=== PATIENT | female | born 1970 | race Two or more races ===

== ENCOUNTER 2017-03-23 21:11 | Emergency (ER) | payer MEDICAID ==
[~2017-03-23] VITALS: Ht 160 cm; Wt 76.6 kg
[~2017-03-23 21:11] MED LIST: ACYCLOVIR400 MG PO; CETIRIZINE HCL10 M1 PO; COLACE100 M1 PO; COLACE100 MG PO; IBUPROFEN800 M1 PO; IBUPROFEN800 MG PO; MACROBID 100 M100 M1 PO; MOTRIN800 MG PO; MULTIVITAMIN1 TAB PO; NO HOME MEDS; PERCOCET 5-3251 EACH PO; PERCOCET 5/3251 TAB PO; PERCOCET 5MG/AP1 TAB PO; PRILOSEC10 MG PO; PROMETHAZINE HC25 M3 PO; PROVENTIL HFA6.7 G1; SERTRALINE HCL100 MG PO; TYLENOL325 M2 PO; VALTREX1000 MG PO; ZOFRAN ODT4 MG/UDTAB PO; ZOLOFT100 M1 PO; ZOLOFT100 MG PO
[2017-03-23] MEDS ORDERED: IBUPROFEN600 M1 PO (22:09)
== END 2017-03-23 22:27 ==
LOC: EDMED 21:11
DX: S93.491A Sprain of other ligament of right ankle, initial encounter (principal); Z88.0 Allergy status to penicillin; Z88.1 Allergy status to other antibiotic agents; X50.1XXA Overexertion from prolonged static or awkward postures, initial encounter; Y92.219 Unspecified school as the place of occurrence of the external cause
CPT/HCPCS: J1885